=== PATIENT | female | born 1990 | race Caucasian/White ===

== ENCOUNTER 2018-10-23 14:25 | Day surgery (SDC) | payer BC ==
[2018-10-23 15:12] VITALS: BP 125/63; TEMP 98.3; BMI 25.8
[2018-10-23] MEDS ORDERED: NIFEdipine 10 MG CAP ONE (15:48)
[2018-10-23] MEDS: NIFEdipine 10 MG CAP ONE (15:50)
[2018-10-23] MEDS ORDERED: NIFEdipine 10 MG CAP PO SCH ×2 (16:16→16:30)
--- NOTE | 2018-10-23 17:34 | PRG ---
DATE OF SERVICE: 10/23/2018 TIME OF SERVICE: 1630 hours. PRESENTING COMPLAINT: Contractions at 34 weeks. HISTORY OF PRESENT ILLNESS: Ms. Miranda is a 3, para [address], [address] Dr[address] Radha Hilliard at [facility]. She has ELENITA of 12/04, placing her at 34 weeks' gestation. She complains of abdominal pain off and on for the past several days. She describes it as contractions persist or not light labor contractions. She denies bleeding or rupture of membranes. She reports an active fetus. [employer] HISTORY: at term x2. Blood type A positive, antibody negative, Pap negative, rubella immune, VDRL nonreactive. Hepatitis B, GC, chlamydia, 50 g within normal limits. The patient had positive group B strep in urine. The patient's previous 2 spontaneous vaginal deliveries at term were 05/02 and 05/30 respectively without gestational diabetes. PAST MEDICAL HISTORY: None. PAST SURGICAL HISTORY: None. ALLERGIES: DENIES. MEDICATIONS: vitamins. SOCIAL HISTORY: Denies tobacco, alcohol, or drug use. FAMILY HISTORY: Noncontributory. REVIEW OF SYSTEMS: Noncontributory. PHYSICAL EXAMINATION: GENERAL: White female, in no acute distress. VITAL SIGNS: Pulse 96, respirations 16, temperature 98.3, and blood pressure 125/63. HEENT: Within normal limits. LUNGS: Clear to auscultation bilaterally. HEART: Regular rate and rhythm. ABDOMEN: Soft and nontender. She has an occasional palpable, but easily indentable contraction. She has no CVA tenderness. PELVIC: Vulva without lesions. Vagina without discharge. Cervix is closed, long, and high in cephalic blocks with ease. EXTREMITIES: No clubbing, cyanosis, or edema. heart rate monitoring for greater than 30 minutes was carried out, revealed baseline of 150s. Positive accelerations, no decelerations. Occasional uterine irritability approximately every 5 to 10 minutes was noted. TREATMENT PLAN: Options were discussed with the patient for IV fluids versus p.o. hydration. She continued p.o. hydration, gave her 1 dose of Procardia. This lowered her blood pressure to 90s over 50s. Her contractions seem to cease and she did not have any change in her heart rate tracing. The patient desired discharge home at this time. We will go ahead and discharge home with ER precautions. Keep scheduled follow up in [address] Radha Hilliard. Job ID: [id number]
[2018-10-23] MEDS ORDERED: NIFEdipine 10 MG CAP PO PRN (22:00)
== END 2018-10-23 16:40 | disposition home or self-care (01) ==
LOC: L&D/OP 14:25
PROVIDERS: ATTEND Family Medicine
DX: O47.03 False labor before 37 completed weeks of gestation, third trimester (principal); Z3A.34 34 weeks gestation of pregnancy
CPT/HCPCS: 99283

== ENCOUNTER 2018-11-22 05:30 | Inpatient (IN) | payer BC ==
[2018-11-22 08:45] VITALS: BMI 26.9
[2018-11-22] MEDS ORDERED: NS w/ Oxytocin 10 units 500 ML IV SCH ×2 (09:00)
[2018-11-22] MEDS ORDERED: Promethazine HCl 25 MG/ML VIAL IM PRN ×2 (09:00→15:43)
[2018-11-22] MEDS ORDERED: Ibuprofen 800 MG TAB PO PRN (09:00)
[2018-11-22] MEDS ORDERED: Misoprostol 200 MCG TAB PR PRN (09:00)
[2018-11-22] MEDS ORDERED: Penicillin G Potassium 5 MILL.UNITS in Sodium Chloride 0.9% 100 ML IVPB SCH (09:00)
[2018-11-22] MEDS ORDERED: Acetaminophen/Codeine 30-300mg Tablet PO SCH (09:00)
[2018-11-22] MEDS ORDERED: Butorphanol Tartrate 1 MG/ML VIAL SLOW IVP PRN (09:00)
[2018-11-22] MEDS ORDERED: HYDROcodone/Acetaminophen 5/325 mg Tablet PO PRN (09:00)
[2018-11-22] MEDS ORDERED: Acetaminophen 500 MG TAB PO PRN (09:00)
[2018-11-22] MEDS ORDERED: Lidocaine 1% (PF) 30 ML VIAL SC PRN (09:00)
[2018-11-22] MEDS ORDERED: Ondansetron PF 4 MG/2 ML Vial IVP PRN ×3 (09:00→18:47)
[2018-11-22] MEDS ORDERED: NS / Oxytocin 40 units/1000ml 1,000 ML IV PRN (09:00)
[2018-11-22] MEDS ORDERED: NS w/ Oxytocin 10 units 500 ML ONE (09:03)
[2018-11-22] MEDS ORDERED: Penicillin G Potassium 5 MILL.UNITS VIAL ONE (09:03)
[2018-11-22] MEDS: Lactated Ringer's 1,000 ML IV SCH ×2 (09:14→22:29)
[2018-11-22 10:13] LABS: Hemoglobin 12.1 g/dL (12.0-16.0); Mean Corpuscular HGB CONC 34.1 g/dL (32.0-36.0); Mean Corpuscular Hemoglobin 30.6 pg (27.0-31.0); Mean Corpuscular Volume 89.6 fL (78.0-98.0); Mean Platelet Volume 9.8 fL (7.4-10.4); Platelet Count 131 thou/uL (130-400); RBC Distribution Width 15.1 % (11.5-14.5); Red Blood Cell (RBC) Count 3.95 mill/uL (4.20-5.40)
[2018-11-22 10:50] LABS: HBSAg Index 0.28 S/CO (0-0.99); Hep B Surf Ag Non-Reactive S/CO (NonReactive); Syphilis Antibody Nonreactive (Nonreactive); Syphilis Antibody Index 0.04 S/CO (<1.00 Non-Reactive)
[2018-11-22] MEDS ORDERED: Bupivacaine 0.25% 10 ML VIAL ONE (11:11)
[2018-11-22] MEDS: Penicillin G 2.5 MILL.units 2.5 MILL.UNITS in Premix Bag 1 BAG IVPB SCH ×3 (12:49→22:29)
[2018-11-22] MEDS ORDERED: Fentanyl 4 mcg/Bup 0.1% Cadd 100 ML ONE (14:13)
[2018-11-22] MEDS ORDERED: Fentanyl 100 MCG/2 ML VIAL ONE (14:53)
[2018-11-22] MEDS ORDERED: Fentanyl 100 MCG/2 ML VIAL EPIDURAL ONE (15:05)
[2018-11-22] MEDS ORDERED: diphenhydrAMINE 50 MG/ML VIAL IVP PRN (15:43)
[2018-11-22] MEDS ORDERED: Lactated Ringer's 500 ML IV PRN (15:43)
[2018-11-22] MEDS ORDERED: Naloxone HCl 0.4 mg/ml Vial IVP PRN ×2 (15:43)
[2018-11-22] MEDS ORDERED: ePHEDrine/0.9% NaCl/PF SYRINGE 50 mg/10 ml SLOW IVP PRN (15:43)
[2018-11-22] MEDS ORDERED: Acetaminophen 325 MG TAB PO PRN (15:43)
[2018-11-22] MEDS ORDERED: Eucerin (Mineral Oil/Petrolatum,White) 30 gm Jar TOP PRN (15:43)
[2018-11-22] MEDS ORDERED: Fentanyl 4 mcg/Bupivacaine 0.1% Cassette 100 ML EPIDURAL SCH (15:45)
[2018-11-22] MEDS ORDERED: Communication Order-Pharmacy FS SCH (15:45)
[2018-11-22] MEDS ORDERED: diphenhydrAMINE 25 MG CAP PO PRN (18:47)
[2018-11-22] MEDS ORDERED: Milk Of Magnesia 30 ML UDCUP PO PRN (18:47)
[2018-11-22] MEDS ORDERED: Preparation H Ointment 28 GM TUBE PR PRN (18:47)
[2018-11-22] MEDS ORDERED: NS / Oxytocin 40 units/1000ml 1,000 ML IV SCH (18:47)
[2018-11-22] MEDS ORDERED: Acetaminophen/Codeine 30-300mg Tablet PO PRN (18:47)
[2018-11-22] MEDS ORDERED: Lanolin Ointment 7 GM TUBE TOP PRN (18:47)
[2018-11-22] MEDS ORDERED: Benzocaine-Menthol 82.5 ML CAN TOP PRN (18:47)
[2018-11-22] MEDS ORDERED: Bisacodyl 10 MG SUPP PR PRN (18:47)
[2018-11-22] MEDS: Docusate Calcium (SURFAK) 240 MG CAP PO SCH (21:08)
[2018-11-22] MEDS: Ibuprofen 800 MG TAB PO SCH (22:05)
[2018-11-23] MEDS: HYDROcodone/Acetaminophen 5/325 mg Tablet PO PRN ×2 (04:25→09:39)
[2018-11-23] MEDS: Ibuprofen 800 MG TAB PO SCH ×3 (06:18→21:24)
[2018-11-23] MEDS: Ferrous Sulfate 325 MG TAB PO SCH ×2 (08:27→17:22)
[2018-11-23] MEDS: Docusate Calcium (SURFAK) 240 MG CAP PO SCH ×2 (09:39→21:24)
[2018-11-23] MEDS: Prenatal Vitamin 1 TAB PO SCH (09:39)
[2018-11-24] MEDS: Ibuprofen 800 MG TAB PO SCH (06:26)
[2018-11-24] MEDS: Ferrous Sulfate 325 MG TAB PO SCH (09:29)
[2018-11-24] MEDS: Docusate Calcium (SURFAK) 240 MG CAP PO SCH (09:33)
[2018-11-24] MEDS: Prenatal Vitamin 1 TAB PO SCH (09:33)
[2018-11-24 11:56] VITALS: BP 112/66; TEMP 98.1
== END 2018-11-24 14:40 | disposition home or self-care (01) | DRG 807 ==
LOC: L&D-LIB 08:06 → L&D 08:22 → 3SE 21:36
PROVIDERS: ADMIT Family Medicine; ATTEND Family Medicine
PROC: 10E0XZZ Delivery of Products of Conception, External Approach (ICD-10-PCS; principal; 2018-11-22)
PROC: 0KQM0ZZ Repair Perineum Muscle, Open Approach (ICD-10-PCS; 2018-11-22)
PROC: 10907ZC Drainage of Amniotic Fluid, Therapeutic from Products of Conception, Via Natural or Artificial Opening (ICD-10-PCS; 2018-11-22)
PROC: 3E033VJ Introduction of Other Hormone into Peripheral Vein, Percutaneous Approach (ICD-10-PCS; 2018-11-22)
DX: O99.824 Streptococcus B carrier state complicating childbirth (principal); Z37.0 Single live birth; O99.02 Anemia complicating childbirth; D64.9 Anemia, unspecified; Z3A.39 39 weeks gestation of pregnancy; O36.63X0 Maternal care for excessive fetal growth, third trimester, not applicable or unspecified; O70.1 Second degree perineal laceration during delivery
CPT/HCPCS: 36415; 51702; 85027; 86780; 86850; 86900; 86901; 87340; J2001; J2540; J3010; S0020